=== PATIENT | male | born 1950 | race Caucasian/White ===

== ENCOUNTER 2020-02-17 07:34 | Outpatient (CLI) | payer MEDICARE, SELFPAY ==
--- NOTE | ~2020-02-17 | US_ITS ---
US abdomen complete DATE: 02/17/2020 08:22 INDICATION: Leukopenia TECHNIQUE: Real-time imaging of the complete abdomen, Doppler analysis COMPARISON: None FINDINGS: The gallbladder is absent. The common bile duct measures up to 9 mm. No hepatic or pancreatic space-occupying mass lesion is evident. Normal hepatopedal portal venous pati w direction. Inferior vena cava is unremarkable. No evidence of abdominal aortic aneurysm. Normal splenic size. No renal mass lesion or hydronephrosis is detected. IMPRESSION: Status post cholecystectomy Reviewed, dictated and finalized at [facility]. Reviewed, dictated and finalized at [facility]. IMPRESSION: Status post cholecystectomy
== END 2020-02-17 07:35 | disposition home or self-care (01) ==
LOC: ANHIMG 07:45
PROVIDERS: PCP Student in an Organized Health Care Education/Training Program; Visit Provider Internal Medicine Hematology & Oncology
DX: D72.819 Decreased white blood cell count, unspecified (principal)
CPT/HCPCS: 76700